=== PATIENT | male | born 1945 | race Caucasian/White ===

== ENCOUNTER 2017-06-10 12:27 | Day surgery (SDC) | payer BC ==
[~2017-06-10] VITALS: Ht 180.3 cm; Wt 101.8 kg
[~2017-06-10 12:27] MED LIST: ASPIR 8181 MG PO; CIALIS5 MG PO; CLOPIDOGREL75 MG PO; CODEINE SULFATE30 MG PO; DAYPRO600 MG PO; DILTIAZEM 24HR240 M1 PO; DOXYCYCLINE HY100 MG PO; FLUOCINONIDE-E15 GM TOP; ISOSORBIDE MONO30 MG PO; LANSOPRAZOLE30 MG PO; LIPITOR40 MG PO; MECLIZINE HCL12.5 MG PO; METOPROLOL TART25 MG PO; NITROGLYCERIN0.4 MG SL; OMEPRAZOLE40 MG PO; OXYCODONE-ACET1 EAC1 PO; PRAMIPEXOLE D0.25 MG PO; PREVACID30 MG PO; PRIMIDONE50 MG PO; PROVENTIL HFA6.7 GM INH; ROBAXIN-750750 MG PO; SIMVASTATIN20 MG PO; TAMIFLU75 MG PO; TELMISARTAN80 MG PO; TERAZOSIN HCL2 MG PO; TRAZODONE HCL50 MG PO; TUSSIN COU15 MG/5 M1 PO; WELLBUTRIN SR150 MG PO; WELLBUTRIN XL300 MG PO; ZOFRAN ODT4 MG PO; [UNRECOGNIZED DRUG - OTHER]
--- NOTE | 2017-06-10 14:36 | NUR ---
06/10/17 1436 Toni Braxton RESPONDS TO TAP AND VOICE. ORIENTED TO TIME AND SITUATION. MD AT BEDSIDE REVIEWING PROCEDURE WITH PT. PT FALLS ASLEEP EASILY.
--- NOTE | 2017-06-20 14:11 | OR ---
[facility] [address], [place] [address] Signed DATE OF OPERATION: 06/10/2017 SURGEON: Darrion Kendall MD PREOPERATIVE DIAGNOSIS: History of colon polyps. POSTOPERATIVE DIAGNOSES: Ongoing anti-platelet therapy, history of coronary artery stenting, and other scattered diverticula. No evidence of polyps or cancer. PROCEDURE: Total colonoscopy to cecum. ANESTHESIA: Intravenous sedation; fentanyl 100 mcg, Versed 5 mg. INDICATION: This 72-year-old white man currently has no primary care provider, previously Dr. Giovanny Steele. He was seen in November 2016 for colonoscopy in part to evaluate right-sided abdominal pain and periumbilical pain. Colonoscopy was deemed inadvisable at the time considering he was on Plavix for stenting that had occurred at that time. He is now greater than a year since that operation and consideration for colonoscopy is made at this point. He has had no colonic symptoms recently, specifically no bleeding, diarrhea, or constipation problems. He has no coronary symptoms either. He is admitted at this time to undergo colonoscopy and understood the risks of bleeding, infection, and perforation. FINDINGS: The prep was good. Complete colonoscopy was undertaken to the cecum. There was scattered diverticula of the sigmoid and left colon, but also polyp. There were diverticula in the more proximal colon including the right colon. There was no evidence of polyps or colitis. No biopsies were required. DESCRIPTION OF PROCEDURE: The patient was brought to the endoscopy suite and placed in lateral decubitus position given intravenous sedation to the point of slurred speech and nystagmus. Digital rectal examination was normal. An Olympus video colonoscope was passed in the rectum and manipulated throughout the Electronically Signed By: DARRION KENDALL MD 06/20/17 1411 PATIENT NAME: MARGARET HURTADO OPERATIVE REPORT DATE OF : 47 REPORT #: [id number] PHYSICIAN: DARRION KENDALL MD PCP: NO PRIMARY CARE PHYSICIAN REPORT IS CONFIDENTIAL AND NOT TO BE RELEASED WITHOUT AUTHORIZATION [facility] [address], [place] [address] Signed colon. Diverticula were seen in the sigmoid and left colon. All due care was taken in the passage of the scope as he remained on a Plavix like medication (though plans have been made to discontinue it. The patient notified this prior to colonoscopy that he remained on it). The scope was ultimately passed to the cecum. The ileocecal valve and appendiceal orifice were identified as normal. Irrigation was undertaken. The scope was carefully withdrawn from that point. Upon withdrawal of scope, scattered diverticula noted in the right colon and transverse colon, but not very many. More diverticula and more extensive diverticular changes were noted in the sigmoid. The scope was withdrawn to the rectum where retroflexed view was undertaken showing no sign of abnormalities. Scope was removed. The patient was taken to recovery room in good condition. CONCLUDING DIAGNOSES: 1. Diverticulosis throughout the colon, most dominantly in the sigmoid and left colon. 2. No evidence of polyps. PLAN: Repeat colonoscopy in 10 years may be inadvisable at an advanced age of 72 years, but it would be a consideration if he is medically fit for it. Recommend high-fiber diet as regard to diverticulosis. Darrion Kendall MD JM/MODL /[id number] cc: Giovanny Steele MD Copies: GIOVANNY STEELE MD ~ Electronically Signed By: DARRION KENDALL MD 06/20/17 1411 PATIENT NAME: MARGARET HURTADO OPERATIVE REPORT DATE OF : 47 REPORT #: [id number] PHYSICIAN: DARRION KENDALL MD PCP: NO PRIMARY CARE PHYSICIAN REPORT IS CONFIDENTIAL AND NOT TO BE RELEASED WITHOUT AUTHORIZATION
== END 2017-06-10 15:30 | disposition home or self-care (01) ==
LOC: DS 12:27 → OPS 12:27 → DS 14:00 → OPS 14:00
PROVIDERS: Surgery
PROC: 0DJD8ZZ Inspection of Lower Intestinal Tract, Via Natural or Artificial Opening Endoscopic (ICD-10-PCS; principal; 2017-06-10 14:00)
DX: Z12.11 Encounter for screening for malignant neoplasm of colon (principal); K57.30 Diverticulosis of large intestine without perforation or abscess without bleeding; J45.909 Unspecified asthma, uncomplicated; F32.9 Major depressive disorder, single episode, unspecified; K21.9 Gastro-esophageal reflux disease without esophagitis; I10 Essential (primary) hypertension; Z86.010 Personal history of colon polyps; Z79.02 Long term (current) use of antithrombotics/antiplatelets; Z95.5 Presence of coronary angioplasty implant and graft; Z88.8 Allergy status to other drugs, medicaments and biological substances; Z90.49 Acquired absence of other specified parts of digestive tract; Z98.890 Other specified postprocedural states
CPT/HCPCS: 99153; G0500; J2250; J3010; J7120

== ENCOUNTER 2017-09-15 12:32 | Emergency (ER) | payer BC ==
[~2017-09-15] VITALS: Ht 180.3 cm; Wt 104.5 kg
[2017-09-15] MEDS ORDERED: ALLEGRA ALLERG180 MG PO (13:07)
== END 2017-09-15 13:45 | disposition home or self-care (01) ==
LOC: ED 12:32
DX: M25.532 Pain in left wrist (principal); I10 Essential (primary) hypertension; K21.9 Gastro-esophageal reflux disease without esophagitis; Z87.891 Personal history of nicotine dependence; Z88.8 Allergy status to other drugs, medicaments and biological substances; Z79.82 Long term (current) use of aspirin; Z79.899 Other long term (current) drug therapy
CPT/HCPCS: 99282

== ENCOUNTER 2020-06-11 08:04 | Emergency (ER) | payer BC ==
[~2020-06-11] VITALS: Ht 180.3 cm; Wt 100.0 kg
[~2020-06-11 08:04] MED LIST changes: +ALLEGRA ALLERG180 MG PO
[2020-06-11] MEDS ORDERED: TELMISARTAN80 MG PO (08:23)
[2020-06-11] MEDS ORDERED: FLUOCINOLONE AC15 G3 TP (08:24)
[2020-06-11] MEDS ORDERED: FLUTICASONE-SA1 EAC4 INH (08:24)
[2020-06-11] MEDS ORDERED: FLAGYL500 MG PO (10:53)
[2020-06-11] MEDS ORDERED: CIPRO500 MG PO (10:53)
[2020-06-12] MEDS ORDERED: MOBIC7.5 MG PO (12:57)
== END 2020-06-11 11:43 | disposition home or self-care (01) ==
LOC: ED 08:04
DX: K57.32 Diverticulitis of large intestine without perforation or abscess without bleeding (principal); I10 Essential (primary) hypertension; Z20.822 Contact with and (suspected) exposure to COVID-19; J45.909 Unspecified asthma, uncomplicated; K21.9 Gastro-esophageal reflux disease without esophagitis; Z87.891 Personal history of nicotine dependence; Z88.8 Allergy status to other drugs, medicaments and biological substances; Z79.899 Other long term (current) drug therapy
CPT/HCPCS: 74176; 80053; 81001; 83605; 83690; 85025; 87493; 99284-25; C9803; J2270; J2405; J2543; J7030; U0003

== ENCOUNTER 2020-06-12 12:42 | Emergency (ER) | payer BC ==
[~2020-06-12] VITALS: Ht 180.3 cm; Wt 100.0 kg
[~2020-06-12 12:42] MED LIST changes: +CIPRO500 MG PO; +FLAGYL500 MG PO; +FLUOCINOLONE AC15 G3 TP; +FLUTICASONE-SA1 EAC4 INH
--- OUTSIDE RECORDS SUMMARY | 2020-06-12 12:44 | XMS ---
PreManage Notification: MARGARET HURTADO Security [employer] Events No recent Security Events currently on file CRITERIA MET - [facility] - 2 Visits in 30 Days CARE PROVIDERS There are no care providers on record at this time. Agnes has no Care Guidelines for this patient. Jaquelin VISIT COUNT (12 MO.) [facility] TOTAL 2 NOTE: Visits indicate total known visits. ED/C VISIT TRACKING (12 MO.) 06/12/2020 12:43 [facility] [place] TYPE: Emergency COMPLAINT: - DIAHERRA 06/11/2020 08:04 [facility] TYPE: Emergency COMPLAINT: - SHAKES,DIARRHEA INPATIENT VISIT TRACKING (12 MO.) No inpatient visits to display in this time frame [email or web address]
[2020-06-12] MEDS ORDERED: MOBIC7.5 MG PO (12:57)
== END 2020-06-12 20:45 | disposition short-term general hospital (02) ==
LOC: ED 12:42
DX: K57.92 Diverticulitis of intestine, part unspecified, without perforation or abscess without bleeding (principal); N17.9 Acute kidney failure, unspecified; E86.0 Dehydration
CPT/HCPCS: 51702; 51798; 80048; 80053; 83605; 83735; 85025; 99285-25; J0610; J2270; J7030

== ENCOUNTER 2020-10-29 21:13 | Emergency (ER) | payer BC ==
[~2020-10-29] VITALS: Ht 180.3 cm; Wt 101.8 kg
[~2020-10-29 21:13] MED LIST changes: +MOBIC7.5 MG PO
[2020-10-30] MEDS ORDERED: HYDROCODON-ACE1 EA10 PO (01:40)
[2020-10-30] MEDS ORDERED: DICLOFENAC SODI75 MG PO (01:40)
--- NOTE | 2020-10-31 07:29 | EKG ---
[facility] [address] [facility] [place] [address] Signed Sinus rhythm with 1st degree AV block Inferior infarct (cited on or before 23-APR-2016) Abnormal ECG When compared with ECG of 29-OCT-2020 22:58, (Unconfirmed) Vent. rate has increased BY 23 BPM QT has lengthened Confirmed by ABDIFATAH GOOD MD ([id number]) on 10/31/2020 7:29:14 AM Electronically Signed By: ABDIFATAH GOOD MD 10/31/20 0729 PATIENT NAME: MARGARET HURTADO Electrocardiogram DATE OF : 47 PHYSICIAN: ABDIFATAH GOOD MD REPORT #: [id number] REPORT IS CONFIDENTIAL AND NOT TO BE RELEASED WITHOUT AUTHORIZATION
--- NOTE | 2020-10-31 07:29 | EKG ---
[facility] [address] [facility] [place] [address] Signed Marked sinus bradycardia with 1st degree AV block Inferior infarct (cited on or before 23-APR-2016) Abnormal ECG When compared with ECG of 23-APR-2016 10:32, Non-specific change in ST segment in Inferior leads T wave inversion no longer evident in Inferior leads Confirmed by ABDIFATAH GOOD MD ([id number]) on 10/31/2020 7:29:04 AM Electronically Signed By: ABDIFATAH GOOD MD 10/31/20 0729 PATIENT NAME: MARGARET HURTADO Electrocardiogram DATE OF : 47 PHYSICIAN: ABDIFATAH GOOD MD REPORT #: [id number] REPORT IS CONFIDENTIAL AND NOT TO BE RELEASED WITHOUT AUTHORIZATION
== END 2020-10-30 01:55 | disposition home or self-care (01) ==
LOC: ED 21:13
DX: M54.41 Lumbago with sciatica, right side (principal); J45.909 Unspecified asthma, uncomplicated; K21.9 Gastro-esophageal reflux disease without esophagitis; I10 Essential (primary) hypertension; Z87.891 Personal history of nicotine dependence; Z88.8 Allergy status to other drugs, medicaments and biological substances; Z79.899 Other long term (current) drug therapy
CPT/HCPCS: 72131; 80053; 81001; 84484; 85025; 93005; 93010; 96374; 96375; 99284-25; J0461; J1170; J1885; J2405; J3010; J7030

== ENCOUNTER 2022-05-25 12:12 | Emergency (ER) | payer OTHER ==
[~2022-05-25] VITALS: Ht 180.3 cm; Wt 101.8 kg
[~2022-05-25 12:12] MED LIST changes: +DICLOFENAC SODI75 MG PO; +HYDROCODON-ACE1 EA10 PO
[2022-05-25] MEDS ORDERED: HYDROCHLOROTHIA25 MG PO (13:52)
== END 2022-05-25 14:07 | disposition home or self-care (01) ==
LOC: ED 12:12
DX: I10 Essential (primary) hypertension (principal); K21.9 Gastro-esophageal reflux disease without esophagitis; J45.909 Unspecified asthma, uncomplicated; Z87.891 Personal history of nicotine dependence; Z88.8 Allergy status to other drugs, medicaments and biological substances; Z79.899 Other long term (current) drug therapy
CPT/HCPCS: 36415; 80053; 85025; 99283; A9270

== ENCOUNTER 2023-03-14 12:17 | Emergency (ER) | payer OTHER ==
[~2023-03-14] VITALS: Ht 180.3 cm; Wt 104.1 kg
[~2023-03-14 12:17] MED LIST changes: +HYDROCHLOROTHIA25 MG PO
[2023-03-14 13:44] LABS: INFLUENZA B NAA NEGATIVE (NEGATIVE); RESPIRATORY SYNCYTIAL VIR NAA NEGATIVE (NEGATIVE)
[2023-03-14] MEDS ORDERED: PREDNISONE20 MG PO (14:09)
[2023-03-14 14:23] VITALS: BP 109/66
== END 2023-03-14 14:25 | disposition home or self-care (01) ==
LOC: ED 12:17
PROVIDERS: Student in an Organized Health Care Education/Training Program
DX: J45.901 Unspecified asthma with (acute) exacerbation (principal); J06.9 Acute upper respiratory infection, unspecified; Z20.822 Contact with and (suspected) exposure to COVID-19; K21.9 Gastro-esophageal reflux disease without esophagitis; I10 Essential (primary) hypertension; Z87.891 Personal history of nicotine dependence; Z88.8 Allergy status to other drugs, medicaments and biological substances; Z79.899 Other long term (current) drug therapy
CPT/HCPCS: 71045; 87502; 94640; 99285-25; C9803; J7512; U0002